=== PATIENT | male | born 1975 | race Caucasian/White ===

== ENCOUNTER 2017-09-19 02:42 | Emergency (ER) | payer SELFPAY ==
[~2017-09-19] VITALS: Ht 167.6 cm; Wt 68.0 kg
[2017-09-19] MEDS ORDERED: SODIUM CHLORIDE 0.9% 1,000 ML IV ONE (06:45)
[2017-09-19] MEDS ORDERED: ONDANSETRON HCL 4MG/2ML VIAL IV ONE (06:45)
[2017-09-19 07:08] LABS: CLARITY URINE CLOUDY (CLEAR); COLOR URINE YELLOW (YELLOW); KETONES URINE NEGATIVE (NEGATIVE); LEUKOCYTE ESTERASE URINE 3+ (NEGATIVE); NITRITE URINE NEGATIVE (NEGATIVE); OCCULT BLOOD URINE 3+ (NEGATIVE); PROTEIN URINE 2+ (NEGATIVE); SPECIFIC GRAVITY URINE 1.006 (1.005-1.030); UROBILINOGEN URINE 0.2 E.U./dL (0.2-1.0)
[2017-09-19 07:26] LABS: BASOPHILS % 0.6 % (0.0-2.0); EOSINOPHILS % 0.1 % (0.0-5.0); HEMATOCRIT. 36.8 % (42.0-52.0); HEMOGLOBIN. 12.7 g/dL (14.0-18.0); LYMPHOCYTES % 15.2 % (20.0-50.0); MEAN CORPUSCULAR HEMOGLOBIN 31.9 pg (28.0-32.0); MEAN CORPUSCULAR VOLUME 92.3 fL (80.0-94.0); MEAN PLATELET VOLUME 9.9 fl (7.4-10.4); MONOCYTES % 9.6 % (2.0-8.0); NEUTROPHILS % 74.5 % (40.0-76.0); PLATELET 121 x1000/uL (130-400); RED BLOOD CELL COUNT 3.99 mill/uL (4.7-6.1); RED CELL DISTRIBUTION WIDTH 13.3 % (11.6-14.6)
[2017-09-19 07:34] LABS: CHLORIDE 104 mEq/L (98-107); PROTHROMBIN TIME 10.1 sec (9.4-11.6)
[2017-09-19] MEDS ORDERED: POTASSIUM CHLORIDE 20MEQ/PACKET PO SCH (07:45)
[2017-09-19] MEDS ORDERED: CEFTRIAXONE 1 G PREMIX 50 ML IV ONE (07:45)
[2017-09-19] MEDS ORDERED: KETOROLAC 15MG/ML VIAL IV ONE (07:45)
[2017-09-19 12:11] VITALS: BP 124/74
== END 2017-09-19 12:12 | disposition home or self-care (01) ==
LOC: ER 02:42
DX: N39.0 Urinary tract infection, site not specified (principal); R10.13 Epigastric pain; R31.9 Hematuria, unspecified; D64.9 Anemia, unspecified; D47.3 Essential (hemorrhagic) thrombocythemia; N28.9 Disorder of kidney and ureter, unspecified; F17.200 Nicotine dependence, unspecified, uncomplicated; Z86.19 Personal history of other infectious and parasitic diseases; Z86.73 Personal history of transient ischemic attack (TIA), and cerebral infarction without residual deficits
CPT/HCPCS: 36415; 76870; 80053; 81003; 83690; 85025; 85610; 87086; 93976; 96365; 96375; 99285; J0696; J1885; J2405; J7030; Z7610

== ENCOUNTER 2021-02-17 23:02 | Inpatient (IN) | payer MEDICAID, OTHER ==
[~2021-02-17] VITALS: Ht 165.1 cm; Wt 60.5 kg
[2021-02-17] MEDS ORDERED: LORAZEPAM 2MG/ML CPJ IV ONE (23:15)
[2021-02-18 01:02] LABS: HEMATOCRIT. 29.5 % (42.0-52.0); HEMOGLOBIN. 10.2 g/dL (14.0-18.0); MEAN CORPUSCULAR HEMOGLOBIN 31.8 pg (28.0-32.0); MEAN CORPUSCULAR VOLUME 92.3 fL (80.0-94.0); MEAN PLATELET VOLUME 10.6 fl (7.4-10.4); RED CELL DISTRIBUTION WIDTH 13.4 % (11.6-14.6)
[2021-02-18 01:12] LABS: CHLORIDE 95 mEq/L (98-107)
[2021-02-18 01:27] LABS: PLATELET 30 x1000/uL (130-400)
[2021-02-18 02:06] LABS: PLATELET ESTIMATE DECREASED
[2021-02-18] MEDS ORDERED: CEFTRIAXONE 1 G PREMIX 50 ML IV ONE (02:45)
[2021-02-18] MEDS ORDERED: VANCOMYCIN 1 G PREMIX 200 ML IV ONE (02:45)
[2021-02-18] MEDS ORDERED: HYDROCODONE/ACETAMINOPHEN 5/325MG TABLET PO ONE (03:45)
[2021-02-18] MEDS ORDERED: MORPHINE SULFATE 2 MG/ML CPJ (NOT FOR IM USE) IV PRN (07:15)
[2021-02-18] MEDS ORDERED: CEFEPIME 1,000 MG in DEXTROSE 5% WATER 50 ML IV SCH (11:30)
[2021-02-18] MEDS ORDERED: POTASSIUM CHLORIDE 20MEQ TABLET SR PO SCH (11:30)
[2021-02-18] MEDS ORDERED: ONDANSETRON HCL 4MG/2ML INJ IV PRN (11:30)
[2021-02-18] MEDS ORDERED: VANCOMYCIN 750 MG PREMIX 150 ML IV SCH (12:00)
[2021-02-18] MEDS: CEFEPIME 1,000 MG in DEXTROSE 5% WATER 50 ML IV SCH (12:12)
[2021-02-18] MEDS: ACETAMINOPHEN 325MG TABLET PO PRN (14:39)
[2021-02-18] MEDS ORDERED: POTASSIUM CHLORIDE 20MEQ TABLET SR PO NR (17:15)
[2021-02-18 18:57] VITALS: BP 128/82
[2021-02-18 20:00] VITALS: BP 108/69
[2021-02-18] MEDS ORDERED: NALOXONE HCL 0.4MG/ML VIAL IV PRN (20:00)
[2021-02-18] MEDS ORDERED: LORAZEPAM 2MG/ML CPJ IV NR (20:00)
[2021-02-18] MEDS: HYDROCODONE/ACETAMINOPHEN 10/325MG TABLET PO PRN (20:05)
[2021-02-18] MEDS: METOPROLOL TARTRATE 50MG TABLET PO SCH (21:00)
[2021-02-19] VITALS: BP 89/58
[2021-02-19 04:00] VITALS: BP 90/54
[2021-02-19 06:38] LABS: HEMATOCRIT. 28.4 % (42.0-52.0); HEMOGLOBIN. 9.7 g/dL (14.0-18.0); MEAN CORPUSCULAR HEMOGLOBIN 31.9 pg (28.0-32.0); MEAN PLATELET VOLUME 12.8 fl (7.4-10.4); RED BLOOD CELL COUNT 3.03 mill/uL (4.7-6.1); RED CELL DISTRIBUTION WIDTH 13.8 % (11.6-14.6)
[2021-02-19 08:00] VITALS: BP 95/59
[2021-02-19] MEDS: SODIUM CHLORIDE 0.9% 1,000 ML IV SCH ×2 (08:11→11:30)
[2021-02-19] MEDS: METOPROLOL TARTRATE 50MG TABLET PO SCH ×2 (09:00→21:00)
[2021-02-19 10:15] LABS: INR 0.9; PARTIAL THROMBOPLASTIN TIME 27.8 sec (23.4-31.0); PROTHROMBIN TIME 9.8 sec (9.6-11.0)
[2021-02-19 12:00] VITALS: BP 104/49
[2021-02-19 14:02] LABS: NUCLEATED RED BLOOD CELLS 1 /100 WBC; PLATELET ESTIMATE MARKEDLY DECREASED
[2021-02-19 14:03] LABS: PLATELET 29 x1000/uL (130-400)
[2021-02-19] MEDS ORDERED: TRAMADOL 50MG TABLET PO PRN (15:00)
[2021-02-19] MEDS: CEFEPIME 1,000 MG in DEXTROSE 5% WATER 50 ML IV SCH (15:00)
[2021-02-19] MEDS: HYDROCODONE/ACETAMINOPHEN 10/325MG TABLET PO PRN (15:01)
[2021-02-19 16:00] VITALS: BP 94/57
[2021-02-19 20:00] VITALS: BP 104/56
[2021-02-19] MEDS ORDERED: EPOETIN ALFA-EPBX 10,000 UNIT/ML VIAL SUBCUT NR (21:00)
[2021-02-19] MEDS: ACETAMINOPHEN 325MG TABLET PO PRN (21:17)
[2021-02-20] VITALS: BP 89/45
[2021-02-20 04:00] VITALS: BP 92/50
[2021-02-20] MEDS: SODIUM CHLORIDE 0.9% 1,000 ML IV SCH (04:00)
[2021-02-20 06:41] LABS: CHLORIDE 101 mEq/L (98-107)
[2021-02-20 07:27] LABS: BASOPHILS % 0.4 % (0.0-2.0); EOSINOPHILS % 0.3 % (0.0-5.0); HEMATOCRIT. 28.7 % (42.0-52.0); HEMOGLOBIN. 9.6 g/dL (14.0-18.0); LYMPHOCYTES % 13.2 % (20.0-50.0); MEAN CORPUSCULAR HEMOGLOBIN 31.1 pg (28.0-32.0); MEAN CORPUSCULAR VOLUME 93.1 fL (80.0-94.0); MEAN PLATELET VOLUME 11.3 fl (7.4-10.4); MONOCYTES % 12.4 % (2.0-8.0); NEUTROPHILS % 73.7 % (40.0-76.0); RED BLOOD CELL COUNT 3.08 mill/uL (4.7-6.1); RED CELL DISTRIBUTION WIDTH 14.1 % (11.6-14.6)
[2021-02-20 08:00] VITALS: BP 92/54
[2021-02-20] MEDS: METOPROLOL TARTRATE 50MG TABLET PO SCH ×2 (08:54→21:00)
[2021-02-20 09:10] LABS: PLATELET 46 x1000/uL (130-400)
[2021-02-20] MEDS ORDERED: POTASSIUM CHLORIDE 20MEQ TABLET SR PO SCH (09:15)
[2021-02-20 10:03] LABS: BG BASE EXCESS -11.2 mmol/L (-2.0-2.0); BG CARBOXYHEMOGLOBIN 0.3 % (0.5-1.5); BG DEOXYHEMOGLOBIN 2.3 % (0.0-5.0); BG FRACTION INSPIRED OXYGEN 32; BG HCO3 ACT 13.6 mmol/L (22.0-26.0); BG METHEMOGLOBIN 0.1 % (0.0-1.5); BG OXYGEN SATURATION 97.7 % (92.0-98.5); BG OXYHEMOGLOBIN 97.3 % (94.0-97.0); BG PCO2 27.4 mmHg (35.0-45.0); BG PH 7.313 (7.350-7.450); BG PO2 109.2 mmHg (75.0-100.0); BG SAMPLE SITE LEFT FEMORAL; BG TOTAL HEMOGLOBIN 10.6 g/dL (12.0-18.0); BG VENT MODE NASAL CANNULA
[2021-02-20 10:10] LABS: ABSOLUTE LYMPHOCYTES 0.9 x10E3/uL (0.7-3.1); ABSOLUTE MONOCYTES 1.1 x10E3/uL (0.1-0.9); ABSOLUTE NEUTROPHILS 9.3 x10E3/uL (1.4-7.0); BASOPHILS 0 % (Not Estab.); HEMATOCRIT 30.3 % (37.5-51.0); HEMATOLOGY COMMENT Note: (.); HEMOGLOBIN 10.6 g/dL (13.0-17.7); IMMATURE GRANULOCYTES 2 % (Not Estab.); IMMATURE GRANULOCYTES ABSOLUTE 0.2 x10E3/uL (0.0-0.1); LYMPHOCYTES 7 % (Not Estab.); MEAN CORPUSCULAR HEMOGLOBIN 31.5 pg (26.6-33.0); MEAN CORPUSCULAR VOLUME 90 fL (79-97); MONOCYTES 10 % (Not Estab.); NEUTROPHILS 81 % (Not Estab.); PLATELETS 37 x10E3/uL (150-450); RBC 3.37 x10E6/uL (4.14-5.80); RED CELL DISTRIBUTION WIDTH 12.8 % (11.6-15.4); WBC 11.5 x10E3/uL (3.4-10.8)
[2021-02-20] MEDS ORDERED: LIDOCAINE HCL 1% 20ML VIAL (Pyxis) INJ ONE (10:29)
[2021-02-20] MEDS: HYDROCODONE/ACETAMINOPHEN 10/325MG TABLET PO PRN (11:02)
[2021-02-20] MEDS: CITRIC ACID/SODIUM CITRATE SOLN 30ML UDC PO SCH ×3 (11:04→17:33)
[2021-02-20] MEDS: MIDODRINE HCL 5MG TABLET PO SCH ×3 (11:08→17:33)
[2021-02-20] MEDS: ACETAMINOPHEN 325MG TABLET PO PRN (11:32)
[2021-02-20 12:00] VITALS: BP 93/53
[2021-02-20 16:00] VITALS: BP 90/47
[2021-02-20 20:00] VITALS: BP 95/53
[2021-02-21] VITALS: BP 94/59
[2021-02-21 04:00] VITALS: BP 103/49
[2021-02-21 04:12] LABS: % CD 3 POS. LYMPHOCYTES 64.6 % (57.5-86.2); % CD 4 POS. LYMPHOCYTES 13.4 % (30.8-58.5); % CD 8 POS. LYMPH 51.2 % (12.0-35.5); ABSOLUTE CD 3 581 /uL (622-2402); ABSOLUTE CD 4 HELPER 121 /uL (359-1519); ABSOLUTE CD 8 SUPPRESSOR 461 /uL (109-897); CD4/CD8 RATIO 0.26 (0.92-3.72)
[2021-02-21] MEDS: ACETAMINOPHEN 325MG TABLET PO PRN (05:01)
[2021-02-21 07:30] LABS: HEMATOCRIT. 26.8 % (42.0-52.0); HEMOGLOBIN. 9.2 g/dL (14.0-18.0); MEAN CORPUSCULAR HEMOGLOBIN 31.6 pg (28.0-32.0); MEAN PLATELET VOLUME 10.7 fl (7.4-10.4); PLATELET 79 x1000/uL (130-400); RED BLOOD CELL COUNT 2.91 mill/uL (4.7-6.1); RED CELL DISTRIBUTION WIDTH 14.1 % (11.6-14.6)
[2021-02-21 08:00] VITALS: BP 90/47
[2021-02-21 08:12] LABS: PHOSPHORUS 2.6 mg/dL (2.5-4.9)
[2021-02-21] MEDS: METOPROLOL TARTRATE 50MG TABLET PO SCH ×2 (09:00→20:42)
[2021-02-21] MEDS: MIDODRINE HCL 5MG TABLET PO SCH ×3 (10:21→18:26)
[2021-02-21] MEDS: CITRIC ACID/SODIUM CITRATE SOLN 30ML UDC PO SCH ×3 (10:21→18:26)
[2021-02-21] MEDS ORDERED: POTASSIUM CHLORIDE 20MEQ TABLET SR PO NR (10:30)
[2021-02-21 11:28] LABS: PLATELET ESTIMATE DECREASED
[2021-02-21 12:00] VITALS: BP 101/56
[2021-02-21] MEDS: CEFAZOLIN 1000MG PREMIX 50 ML IV SCH (12:48)
[2021-02-21] MEDS: SULFAMETHOXAZOLE/TRIMETHOPRIM 400/80MG TAB PO SCH (12:48)
[2021-02-21 16:00] VITALS: BP 103/62
[2021-02-21 20:00] VITALS: BP 102/59
[2021-02-21] MEDS: SODIUM CHLORIDE 0.9% 1,000 ML IV SCH ×2 (20:44)
[2021-02-22] VITALS: BP 98/53
[2021-02-22 05:25] VITALS: BP 99/58
[2021-02-22 06:46] LABS: BASOPHILS % 0.3 % (0.0-2.0); EOSINOPHILS % 0.1 % (0.0-5.0); HEMATOCRIT. 26.8 % (42.0-52.0); HEMOGLOBIN. 9.1 g/dL (14.0-18.0); LYMPHOCYTES % 9.3 % (20.0-50.0); MEAN CORPUSCULAR HEMOGLOBIN 31.5 pg (28.0-32.0); MEAN CORPUSCULAR VOLUME 92.5 fL (80.0-94.0); MEAN PLATELET VOLUME 9.8 fl (7.4-10.4); MONOCYTES % 8.7 % (2.0-8.0); NEUTROPHILS % 81.6 % (40.0-76.0); PLATELET 136 x1000/uL (130-400); RED CELL DISTRIBUTION WIDTH 13.9 % (11.6-14.6)
[2021-02-22 07:20] LABS: PHOSPHORUS 2.1 mg/dL (2.5-4.9)
[2021-02-22 08:00] VITALS: BP_SYST 105; BP_SYST 126; BP_DIAS 72; BP_DIAS 74
[2021-02-22] MEDS: METOPROLOL TARTRATE 50MG TABLET PO SCH ×2 (09:00→21:00)
[2021-02-22] MEDS: SULFAMETHOXAZOLE/TRIMETHOPRIM 400/80MG TAB PO SCH (10:32)
[2021-02-22] MEDS: MIDODRINE HCL 5MG TABLET PO SCH ×3 (10:34→16:58)
[2021-02-22] MEDS: CITRIC ACID/SODIUM CITRATE SOLN 30ML UDC PO SCH ×4 (10:34→17:00)
[2021-02-22] MEDS: HYDROCODONE/ACETAMINOPHEN 10/325MG TABLET PO PRN ×2 (10:40→21:46)
[2021-02-22] MEDS ORDERED: POTASSIUM PHOS,M-BASIC-D-BASIC 15 MMOL in DEXT 5% WATER 245 ML IV NR (11:00)
[2021-02-22 12:00] VITALS: BP 105/72
[2021-02-22] MEDS: CEFAZOLIN 1000MG PREMIX 50 ML IV SCH (13:30)
[2021-02-22] MEDS: SODIUM CHLORIDE 0.9% 1,000 ML IV SCH (16:00)
[2021-02-22 17:00] VITALS: BP 102/71
[2021-02-22] MEDS: ACETAMINOPHEN 325MG TABLET PO PRN (17:14)
[2021-02-22 20:00] VITALS: BP 101/57
[2021-02-22] MEDS ORDERED: EPOETIN ALFA-EPBX 10,000 UNIT/ML VIAL SUBCUT SCH (21:00)
[2021-02-23] VITALS: BP 105/56
[2021-02-23 03:47] VITALS: BP 109/55
[2021-02-23] MEDS: HYDROCODONE/ACETAMINOPHEN 10/325MG TABLET PO PRN ×2 (05:08→09:31)
[2021-02-23 06:42] LABS: BASOPHILS % 0.9 % (0.0-2.0); EOSINOPHILS % 0.5 % (0.0-5.0); HEMATOCRIT. 28.1 % (42.0-52.0); HEMOGLOBIN. 9.4 g/dL (14.0-18.0); LYMPHOCYTES % 10.9 % (20.0-50.0); MEAN CORPUSCULAR HEMOGLOBIN 31.1 pg (28.0-32.0); MEAN CORPUSCULAR VOLUME 93.2 fL (80.0-94.0); MEAN PLATELET VOLUME 9.9 fl (7.4-10.4); NEUTROPHILS % 77.7 % (40.0-76.0); PLATELET 166 x1000/uL (130-400); RED BLOOD CELL COUNT 3.02 mill/uL (4.7-6.1); RED CELL DISTRIBUTION WIDTH 13.8 % (11.6-14.6)
[2021-02-23 07:22] VITALS: BP 96/50
[2021-02-23] MEDS: METOPROLOL TARTRATE 50MG TABLET PO SCH ×2 (09:00→20:31)
[2021-02-23] MEDS: SULFAMETHOXAZOLE/TRIMETHOPRIM 400/80MG TAB PO SCH (09:31)
[2021-02-23] MEDS: CITRIC ACID/SODIUM CITRATE SOLN 30ML UDC PO SCH ×3 (09:31→17:28)
[2021-02-23] MEDS: MIDODRINE HCL 5MG TABLET PO SCH ×3 (09:33→17:28)
[2021-02-23 12:00] VITALS: BP 97/48
[2021-02-23] MEDS ORDERED: POTASSIUM CHLORIDE 20MEQ TABLET SR PO NR ×2 (13:00→13:45)
[2021-02-23] MEDS: SODIUM CHLORIDE 0.9% 1,000 ML IV SCH (13:29)
[2021-02-23] MEDS: CEFAZOLIN 1000MG PREMIX 50 ML IV SCH (13:29)
[2021-02-23 15:55] VITALS: BP 96/52
[2021-02-23 21:00] VITALS: BP 100/58
[2021-02-24] VITALS: BP 101/61
[2021-02-24 04:00] VITALS: BP 109/62
[2021-02-24 05:58] LABS: PHOSPHORUS 3.4 mg/dL (2.5-4.9)
[2021-02-24 06:37] LABS: BASOPHILS % 0.7 % (0.0-2.0); EOSINOPHILS % 0.1 % (0.0-5.0); HEMATOCRIT. 26.6 % (42.0-52.0); LYMPHOCYTES % 12.1 % (20.0-50.0); MEAN CORPUSCULAR HEMOGLOBIN 31.5 pg (28.0-32.0); MEAN CORPUSCULAR VOLUME 93.5 fL (80.0-94.0); MEAN PLATELET VOLUME 10.2 fl (7.4-10.4); MONOCYTES % 9.2 % (2.0-8.0); NEUTROPHILS % 77.9 % (40.0-76.0); PLATELET 179 x1000/uL (130-400); RED BLOOD CELL COUNT 2.85 mill/uL (4.7-6.1); RED CELL DISTRIBUTION WIDTH 13.5 % (11.6-14.6)
[2021-02-24 08:00] VITALS: BP 108/59
[2021-02-24] MEDS: METOPROLOL TARTRATE 50MG TABLET PO SCH ×2 (09:00→20:34)
[2021-02-24] MEDS: ACETAMINOPHEN 325MG TABLET PO PRN (09:07)
[2021-02-24] MEDS: CITRIC ACID/SODIUM CITRATE SOLN 30ML UDC PO SCH ×2 (09:07→16:36)
[2021-02-24] MEDS: SULFAMETHOXAZOLE/TRIMETHOPRIM 400/80MG TAB PO SCH (09:07)
[2021-02-24] MEDS: MIDODRINE HCL 5MG TABLET PO SCH ×3 (09:08→16:37)
[2021-02-24] MEDS: SODIUM CHLORIDE 0.9% 1,000 ML IV SCH (09:08)
[2021-02-24 11:57] VITALS: BP 91/56
[2021-02-24] MEDS: CEFAZOLIN 1000MG PREMIX 50 ML IV SCH (13:29)
[2021-02-24 15:59] VITALS: BP 97/50
[2021-02-24 20:00] VITALS: BP 93/53
[2021-02-24] MEDS ORDERED: VANCOMYCIN 750 MG PREMIX 150 ML IV NR (21:00)
[2021-02-25] VITALS: BP 97/58
[2021-02-25] MEDS: ACETAMINOPHEN 325MG TABLET PO PRN ×2 (03:05→17:30)
[2021-02-25] MEDS: SODIUM CHLORIDE 0.9% 1,000 ML IV SCH (03:13)
[2021-02-25 03:48] VITALS: BP 112/53
[2021-02-25 08:00] VITALS: BP 101/49
[2021-02-25] MEDS: SULFAMETHOXAZOLE/TRIMETHOPRIM 400/80MG TAB PO SCH (08:16)
[2021-02-25] MEDS: CITRIC ACID/SODIUM CITRATE SOLN 30ML UDC PO SCH ×2 (08:16→17:25)
[2021-02-25] MEDS: METOPROLOL TARTRATE 50MG TABLET PO SCH ×2 (08:19→21:00)
[2021-02-25] MEDS: MIDODRINE HCL 5MG TABLET PO SCH ×3 (08:20→17:25)
[2021-02-25] MEDS ORDERED: LORAZEPAM 2MG/ML CPJ IV NR (11:15)
[2021-02-25 12:00] VITALS: BP 96/51
[2021-02-25] MEDS: CEFAZOLIN 1000MG PREMIX 50 ML IV SCH (12:28)
[2021-02-25 16:15] VITALS: BP 94/49
[2021-02-25] MEDS: GUAIFENESIN-DM 200MG-20MG/10ML UDC PO PRN (17:43)
[2021-02-25 20:00] VITALS: BP 91/50
[2021-02-25] MEDS: COLCHICINE 0.6MG TABLET PO SCH (22:23)
[2021-02-26 00:01] VITALS: BP 100/61
[2021-02-26] MEDS: SODIUM CHLORIDE 0.9% 1,000 ML IV SCH ×2 (00:28→20:00)
[2021-02-26 03:59] VITALS: BP 101/52
[2021-02-26 06:07] LABS: BASOPHILS % 0.4 % (0.0-2.0); HEMATOCRIT. 26.6 % (42.0-52.0); LYMPHOCYTES % 13.4 % (20.0-50.0); MEAN CORPUSCULAR HEMOGLOBIN 31.5 pg (28.0-32.0); MEAN CORPUSCULAR VOLUME 93.7 fL (80.0-94.0); MEAN PLATELET VOLUME 9.2 fl (7.4-10.4); MONOCYTES % 8.1 % (2.0-8.0); NEUTROPHILS % 78.1 % (40.0-76.0); PLATELET 180 x1000/uL (130-400); RED BLOOD CELL COUNT 2.84 mill/uL (4.7-6.1); RED CELL DISTRIBUTION WIDTH 13.8 % (11.6-14.6)
[2021-02-26 06:16] LABS: CHLORIDE 105 mEq/L (98-107)
[2021-02-26 06:25] LABS: PHOSPHORUS 3.1 mg/dL (2.5-4.9)
[2021-02-26 08:00] VITALS: BP 100/56
[2021-02-26] MEDS: SULFAMETHOXAZOLE/TRIMETHOPRIM 400/80MG TAB PO SCH (09:24)
[2021-02-26] MEDS: METOPROLOL TARTRATE 50MG TABLET PO SCH ×2 (09:25→21:00)
[2021-02-26] MEDS: MIDODRINE HCL 5MG TABLET PO SCH ×3 (09:25→18:03)
[2021-02-26] MEDS: COLCHICINE 0.6MG TABLET PO SCH (09:26)
[2021-02-26 12:00] VITALS: BP 94/56
[2021-02-26] MEDS: CITRIC ACID/SODIUM CITRATE SOLN 30ML UDC PO SCH ×2 (13:31→18:04)
[2021-02-26] MEDS: CEFAZOLIN 1000MG PREMIX 50 ML IV SCH (15:25)
[2021-02-26 16:00] VITALS: BP 98/52
[2021-02-26 20:00] VITALS: BP 119/69
[2021-02-26] MEDS ORDERED: DAPTOMYCIN 350 MG in SODIUM CHLORIDE 0.9% 50 ML IV SCH (20:00)
[2021-02-27] VITALS: BP 97/54
[2021-02-27 04:00] VITALS: BP 97/52
[2021-02-27 07:21] LABS: PARTIAL THROMBOPLASTIN TIME 24.1 sec (23.4-31.0); PROTHROMBIN TIME 10.4 sec (9.6-11.0)
[2021-02-27 07:24] LABS: BASOPHILS % 1.5 % (0.0-2.0); HEMATOCRIT. 26.8 % (42.0-52.0); HEMOGLOBIN. 9.1 g/dL (14.0-18.0); LYMPHOCYTES % 17.8 % (20.0-50.0); MEAN CORPUSCULAR HEMOGLOBIN 31.8 pg (28.0-32.0); MEAN CORPUSCULAR VOLUME 93.8 fL (80.0-94.0); MONOCYTES % 7.4 % (2.0-8.0); NEUTROPHILS % 73.3 % (40.0-76.0); RED BLOOD CELL COUNT 2.86 mill/uL (4.7-6.1); RED CELL DISTRIBUTION WIDTH 13.9 % (11.6-14.6)
[2021-02-27 07:34] LABS: PHOSPHORUS 3.6 mg/dL (2.5-4.9)
[2021-02-27 08:00] VITALS: BP 93/54
[2021-02-27] MEDS: METOPROLOL TARTRATE 50MG TABLET PO SCH ×2 (09:00→20:44)
[2021-02-27] MEDS: CITRIC ACID/SODIUM CITRATE SOLN 30ML UDC PO SCH ×2 (09:36→17:33)
[2021-02-27] MEDS: MIDODRINE HCL 5MG TABLET PO SCH ×3 (09:36→17:33)
[2021-02-27] MEDS: ATOVAQUONE 750MG/5ML ORAL SYRINGE PO SCH (09:36)
[2021-02-27 09:54] LABS: PLATELET 186 x1000/uL (130-400)
[2021-02-27] MEDS: ACETAMINOPHEN 325MG TABLET PO PRN (11:23)
[2021-02-27 12:00] VITALS: BP 91/56
[2021-02-27] MEDS ORDERED: SODIUM BICARBONATE 4% (2.4MEQ) 5ML VIAL IV ONE (13:44)
[2021-02-27] MEDS ORDERED: LIDOCAINE HCL 1% 10 MG/ML 10ML VIAL ONE (13:44)
[2021-02-27 16:00] VITALS: BP 105/57
[2021-02-27] MEDS: SODIUM CHLORIDE 0.9% 1,000 ML IV SCH (16:00)
[2021-02-27 18:34] LABS: CREATINE KINASE 280 IU/L (39-308)
[2021-02-27 20:00] VITALS: BP 101/60
[2021-02-28] VITALS: BP 99/63
[2021-02-28 04:00] VITALS: BP 119/68
[2021-02-28 06:51] LABS: BASOPHILS % 1.1 % (0.0-2.0); EOSINOPHILS % 0.1 % (0.0-5.0); HEMATOCRIT. 25.1 % (42.0-52.0); HEMOGLOBIN. 8.5 g/dL (14.0-18.0); LYMPHOCYTES % 21.5 % (20.0-50.0); MEAN CORPUSCULAR HEMOGLOBIN 31.6 pg (28.0-32.0); MEAN PLATELET VOLUME 9.3 fl (7.4-10.4); NEUTROPHILS % 69.3 % (40.0-76.0); PLATELET 178 x1000/uL (130-400); RED CELL DISTRIBUTION WIDTH 13.5 % (11.6-14.6)
[2021-02-28 07:09] LABS: PHOSPHORUS 3.4 mg/dL (2.5-4.9)
[2021-02-28 08:00] VITALS: BP 112/63
[2021-02-28] MEDS: ATOVAQUONE 750MG/5ML ORAL SYRINGE PO SCH (09:24)
[2021-02-28] MEDS: CITRIC ACID/SODIUM CITRATE SOLN 30ML UDC PO SCH (09:24)
[2021-02-28] MEDS: MIDODRINE HCL 5MG TABLET PO SCH ×3 (09:25→16:34)
[2021-02-28] MEDS: METOPROLOL TARTRATE 50MG TABLET PO SCH ×2 (09:25→20:58)
[2021-02-28 12:00] VITALS: BP 127/101
[2021-02-28] MEDS ORDERED: VANCOMYCIN 1 G PREMIX 200 ML IV SCH (12:00)
[2021-02-28] MEDS: GUAIFENESIN-DM 200MG-20MG/10ML UDC PO PRN (12:14)
[2021-02-28] MEDS: SODIUM CHLORIDE 0.9% 1,000 ML IV SCH (12:15)
[2021-02-28] MEDS ORDERED: VANCOMYCIN 750 MG PREMIX 150 ML IV NR (15:00)
[2021-02-28 16:00] VITALS: BP 99/53
[2021-02-28 20:00] VITALS: BP 127/74
[2021-03-01 01:43] VITALS: BP 103/54
[2021-03-01 04:00] VITALS: BP 111/59
[2021-03-01 06:48] LABS: HEMATOCRIT. 26.7 % (42.0-52.0); HEMOGLOBIN. 8.9 g/dL (14.0-18.0); LYMPHOCYTES % 26.9 % (20.0-50.0); MEAN CORPUSCULAR HEMOGLOBIN 31.5 pg (28.0-32.0); MEAN CORPUSCULAR VOLUME 93.9 fL (80.0-94.0); MONOCYTES % 9.9 % (2.0-8.0); NEUTROPHILS % 62.2 % (40.0-76.0); PLATELET 182 x1000/uL (130-400); RED BLOOD CELL COUNT 2.84 mill/uL (4.7-6.1); RED CELL DISTRIBUTION WIDTH 13.3 % (11.6-14.6)
[2021-03-01 07:00] LABS: PHOSPHORUS 3.6 mg/dL (2.5-4.9)
[2021-03-01 08:00] VITALS: BP 100/57
[2021-03-01] MEDS: METOPROLOL TARTRATE 50MG TABLET PO SCH ×2 (09:00→21:00)
[2021-03-01] MEDS: MIDODRINE HCL 5MG TABLET PO SCH ×3 (09:03→17:31)
[2021-03-01] MEDS: ATOVAQUONE 750MG/5ML ORAL SYRINGE PO SCH (09:05)
[2021-03-01] MEDS: SODIUM CHLORIDE 0.9% 1,000 ML IV SCH (09:07)
[2021-03-01 12:00] VITALS: BP 111/63
[2021-03-01] MEDS ORDERED: NALOXONE HCL 0.4MG/ML VIAL IV PRN (15:45)
[2021-03-01 16:00] VITALS: BP 97/60
[2021-03-01] MEDS: TRAMADOL 50MG TABLET PO PRN (17:31)
[2021-03-01 20:00] VITALS: BP 104/71
[2021-03-02] VITALS: BP 97/54
[2021-03-02 04:00] VITALS: BP 146/62
[2021-03-02] MEDS: SODIUM CHLORIDE 0.9% 1,000 ML IV SCH (04:00)
[2021-03-02 08:00] VITALS: BP 106/58
[2021-03-02] MEDS: ATOVAQUONE 750MG/5ML ORAL SYRINGE PO SCH (08:51)
[2021-03-02] MEDS: MIDODRINE HCL 5MG TABLET PO SCH ×3 (08:51→17:51)
[2021-03-02] MEDS: METOPROLOL TARTRATE 50MG TABLET PO SCH ×2 (08:52→20:57)
[2021-03-02 12:00] VITALS: BP 126/58
[2021-03-02 16:00] VITALS: BP 96/55
[2021-03-02] MEDS: TRAMADOL 50MG TABLET PO PRN (17:58)
[2021-03-02 20:00] VITALS: BP 105/56
[2021-03-02] MEDS ORDERED: VANCOMYCIN 500 MG PREMIX 100 ML IV SCH (20:00)
[2021-03-03] VITALS: BP 111/73
[2021-03-03 04:00] VITALS: BP 117/66
[2021-03-03 08:00] VITALS: BP 114/59
[2021-03-03] MEDS: METOPROLOL TARTRATE 50MG TABLET PO SCH ×2 (08:51→20:59)
[2021-03-03] MEDS: ATOVAQUONE 750MG/5ML ORAL SYRINGE PO SCH (08:53)
[2021-03-03] MEDS: MIDODRINE HCL 5MG TABLET PO SCH (08:54)
[2021-03-03] MEDS: TRAMADOL 50MG TABLET PO PRN (08:55)
[2021-03-03 12:00] VITALS: BP 114/56
[2021-03-03] MEDS: MIDODRINE HCL 2.5MG TABLET PO SCH ×2 (14:16→17:00)
[2021-03-03 16:00] VITALS: BP 112/74
[2021-03-03 20:00] VITALS: BP 99/63
[2021-03-03] MEDS: SODIUM CHLORIDE 0.9% 1,000 ML IV SCH ×2 (20:00)
[2021-03-04] VITALS: BP 98/60
[2021-03-04 04:00] VITALS: BP 104/62
[2021-03-04 08:00] VITALS: BP 107/63
[2021-03-04] MEDS: METOPROLOL TARTRATE 50MG TABLET PO SCH ×3 (09:00→21:00)
[2021-03-04] MEDS: ATOVAQUONE 750MG/5ML ORAL SYRINGE PO SCH (10:18)
[2021-03-04] MEDS: MIDODRINE HCL 2.5MG TABLET PO SCH ×3 (10:19→17:30)
[2021-03-04 12:00] VITALS: BP 99/64
[2021-03-04] MEDS: SODIUM CHLORIDE 0.9% 1,000 ML IV SCH (15:10)
[2021-03-04 16:00] VITALS: BP 112/59
[2021-03-04 20:00] VITALS: BP 93/57
[2021-03-04] MEDS ORDERED: VANCOMYCIN 500 MG PREMIX 100 ML IV NR (21:00)
[2021-03-05] VITALS: BP 108/68
[2021-03-05 04:00] VITALS: BP 113/66
[2021-03-05 07:34] LABS: HEMATOCRIT. 26.5 % (42.0-52.0); HEMOGLOBIN. 8.6 g/dL (14.0-18.0); MEAN CORPUSCULAR HEMOGLOBIN 30.3 pg (28.0-32.0); MEAN CORPUSCULAR VOLUME 93.9 fL (80.0-94.0); MEAN PLATELET VOLUME 9.4 fl (7.4-10.4); MONOCYTES % 9.5 % (2.0-8.0); NEUTROPHILS % 56.5 % (40.0-76.0); PLATELET 222 x1000/uL (130-400); RED BLOOD CELL COUNT 2.82 mill/uL (4.7-6.1); RED CELL DISTRIBUTION WIDTH 12.9 % (11.6-14.6)
[2021-03-05 08:00] VITALS: BP 121/71
[2021-03-05] MEDS: ATOVAQUONE 750MG/5ML ORAL SYRINGE PO SCH (09:21)
[2021-03-05] MEDS: MIDODRINE HCL 2.5MG TABLET PO SCH ×3 (09:22→17:10)
[2021-03-05] MEDS: METOPROLOL TARTRATE 50MG TABLET PO SCH ×2 (09:23→21:26)
[2021-03-05 12:00] VITALS: BP 102/61
[2021-03-05 16:00] VITALS: BP 108/77
[2021-03-05 20:00] VITALS: BP 111/65
[2021-03-06] VITALS: BP 96/61
[2021-03-06 04:00] VITALS: BP 89/47
[2021-03-06 07:50] LABS: BASOPHILS % 1.2 % (0.0-2.0); HEMATOCRIT. 25.8 % (42.0-52.0); HEMOGLOBIN. 8.7 g/dL (14.0-18.0); LYMPHOCYTES % 41.4 % (20.0-50.0); MEAN CORPUSCULAR HEMOGLOBIN 31.2 pg (28.0-32.0); MEAN PLATELET VOLUME 9.3 fl (7.4-10.4); MONOCYTES % 12.1 % (2.0-8.0); NEUTROPHILS % 45.3 % (40.0-76.0); PLATELET 231 x1000/uL (130-400); RED CELL DISTRIBUTION WIDTH 12.8 % (11.6-14.6)
[2021-03-06 08:00] VITALS: BP 98/57
[2021-03-06 08:01] LABS: PHOSPHORUS 4.2 mg/dL (2.5-4.9)
[2021-03-06] MEDS: METOPROLOL TARTRATE 50MG TABLET PO SCH ×2 (09:00→20:41)
[2021-03-06] MEDS: MIDODRINE HCL 2.5MG TABLET PO SCH ×3 (09:09→18:27)
[2021-03-06] MEDS: ATOVAQUONE 750MG/5ML ORAL SYRINGE PO SCH (09:12)
[2021-03-06 12:00] VITALS: BP 120/60
[2021-03-06 16:00] VITALS: BP 109/66
[2021-03-06 20:00] VITALS: BP 106/51
[2021-03-06] MEDS ORDERED: EPOETIN ALFA-EPBX 10,000 UNIT/ML VIAL SUBCUT NR (21:00)
[2021-03-07] VITALS: BP_SYST 96; BP_SYST 99; BP_DIAS 57; BP_DIAS 61
[2021-03-07 04:00] VITALS: BP 99/61
[2021-03-07 07:32] LABS: HEMATOCRIT. 26.7 % (42.0-52.0); HEMOGLOBIN. 8.7 g/dL (14.0-18.0); MEAN CORPUSCULAR HEMOGLOBIN 30.2 pg (28.0-32.0); MEAN CORPUSCULAR VOLUME 92.6 fL (80.0-94.0); MEAN PLATELET VOLUME 9.3 fl (7.4-10.4); PLATELET 228 x1000/uL (130-400); RED BLOOD CELL COUNT 2.89 mill/uL (4.7-6.1); RED CELL DISTRIBUTION WIDTH 12.7 % (11.6-14.6)
[2021-03-07 07:33] LABS: PHOSPHORUS 3.4 mg/dL (2.5-4.9)
[2021-03-07 08:00] VITALS: BP 98/58
[2021-03-07] MEDS: METOPROLOL TARTRATE 50MG TABLET PO SCH ×2 (08:38→21:00)
[2021-03-07] MEDS: MIDODRINE HCL 2.5MG TABLET PO SCH ×3 (08:49→17:30)
[2021-03-07] MEDS: ATOVAQUONE 750MG/5ML ORAL SYRINGE PO SCH (08:50)
[2021-03-07 12:00] VITALS: BP 108/58
[2021-03-07 13:52] LABS: PLATELET ESTIMATE NORMAL
[2021-03-07] MEDS ORDERED: VANCOMYCIN 500 MG PREMIX 100 ML IV NR (15:00)
[2021-03-07 16:00] VITALS: BP 115/71
[2021-03-07 20:00] VITALS: BP 99/57
[2021-03-08] VITALS: BP 109/57
[2021-03-08 08:00] VITALS: BP 98/63
[2021-03-08] MEDS: METOPROLOL TARTRATE 50MG TABLET PO SCH ×2 (08:28→21:00)
[2021-03-08] MEDS: ATOVAQUONE 750MG/5ML ORAL SYRINGE PO SCH (08:29)
[2021-03-08] MEDS: MIDODRINE HCL 2.5MG TABLET PO SCH ×3 (08:29→16:50)
[2021-03-08 09:16] LABS: HEMATOCRIT. 26.2 % (42.0-52.0); HEMOGLOBIN. 8.6 g/dL (14.0-18.0); LYMPHOCYTES % 45.1 % (20.0-50.0); MEAN CORPUSCULAR HEMOGLOBIN 30.6 pg (28.0-32.0); MEAN CORPUSCULAR VOLUME 92.8 fL (80.0-94.0); MEAN PLATELET VOLUME 9.2 fl (7.4-10.4); MONOCYTES % 12.9 % (2.0-8.0); PLATELET 238 x1000/uL (130-400); RED BLOOD CELL COUNT 2.82 mill/uL (4.7-6.1)
[2021-03-08 09:36] LABS: PHOSPHORUS 2.9 mg/dL (2.5-4.9)
[2021-03-08 20:00] VITALS: BP 91/67
[2021-03-09] VITALS: BP 92/56
[2021-03-09 04:00] VITALS: BP 106/57
[2021-03-09 08:00] VITALS: BP 107/59
[2021-03-09 08:56] LABS: BASOPHILS % 1.1 % (0.0-2.0); HEMATOCRIT. 25.4 % (42.0-52.0); HEMOGLOBIN. 8.6 g/dL (14.0-18.0); LYMPHOCYTES % 44.1 % (20.0-50.0); MEAN CORPUSCULAR HEMOGLOBIN 31.6 pg (28.0-32.0); MEAN CORPUSCULAR VOLUME 93.1 fL (80.0-94.0); MEAN PLATELET VOLUME 9.7 fl (7.4-10.4); MONOCYTES % 12.6 % (2.0-8.0); NEUTROPHILS % 42.2 % (40.0-76.0); PLATELET 236 x1000/uL (130-400); RED BLOOD CELL COUNT 2.73 mill/uL (4.7-6.1); RED CELL DISTRIBUTION WIDTH 13.1 % (11.6-14.6)
[2021-03-09 09:07] LABS: PHOSPHORUS 2.2 mg/dL (2.5-4.9)
[2021-03-09] MEDS: MIDODRINE HCL 2.5MG TABLET PO SCH ×3 (09:23→16:47)
[2021-03-09] MEDS: METOPROLOL TARTRATE 50MG TABLET PO SCH ×2 (09:23→09:25)
[2021-03-09] MEDS: ATOVAQUONE 750MG/5ML ORAL SYRINGE PO SCH (09:23)
[2021-03-09 12:00] VITALS: BP 108/62
[2021-03-09] MEDS ORDERED: SODIUM PHOS,M-BASIC-D-BASIC 15 MM in DEXT 5% WATER 245 ML IV SCH (15:00)
[2021-03-09 16:00] VITALS: BP 107/59
[2021-03-09] MEDS ORDERED: VANCOMYCIN 500 MG PREMIX 100 ML IV NR ×2 (18:00→20:00)
[2021-03-09 20:00] VITALS: BP 100/55
[2021-03-10] VITALS: BP 99/56
[2021-03-10 04:00] VITALS: BP 101/60
[2021-03-10 08:00] VITALS: BP 99/65
[2021-03-10] MEDS: MIDODRINE HCL 2.5MG TABLET PO SCH ×3 (08:57→18:06)
[2021-03-10] MEDS: ATOVAQUONE 750MG/5ML ORAL SYRINGE PO SCH (08:57)
[2021-03-10] MEDS: METOPROLOL TARTRATE 50MG TABLET PO SCH ×2 (08:58→20:51)
[2021-03-10 09:16] LABS: EOSINOPHILS % 0.1 % (0.0-5.0); HEMATOCRIT. 26.2 % (42.0-52.0); HEMOGLOBIN. 8.8 g/dL (14.0-18.0); LYMPHOCYTES % 41.4 % (20.0-50.0); MEAN CORPUSCULAR HEMOGLOBIN 31.4 pg (28.0-32.0); MEAN PLATELET VOLUME 9.7 fl (7.4-10.4); MONOCYTES % 11.9 % (2.0-8.0); NEUTROPHILS % 45.6 % (40.0-76.0); PLATELET 246 x1000/uL (130-400); RED BLOOD CELL COUNT 2.78 mill/uL (4.7-6.1); RED CELL DISTRIBUTION WIDTH 13.4 % (11.6-14.6)
[2021-03-10 12:00] VITALS: BP 114/54
[2021-03-10 16:00] VITALS: BP 118/61
[2021-03-10 20:00] VITALS: BP 102/50
[2021-03-11] VITALS: BP 101/58
[2021-03-11 04:00] VITALS: BP 120/58
[2021-03-11 07:15] LABS: BASOPHILS % 0.9 % (0.0-2.0); EOSINOPHILS % 0.1 % (0.0-5.0); HEMATOCRIT. 26.6 % (42.0-52.0); HEMOGLOBIN. 8.6 g/dL (14.0-18.0); LYMPHOCYTES % 45.6 % (20.0-50.0); MEAN CORPUSCULAR HEMOGLOBIN 30.3 pg (28.0-32.0); MEAN CORPUSCULAR VOLUME 93.6 fL (80.0-94.0); MEAN PLATELET VOLUME 9.5 fl (7.4-10.4); MONOCYTES % 11.3 % (2.0-8.0); NEUTROPHILS % 42.1 % (40.0-76.0); PLATELET 262 x1000/uL (130-400); RED BLOOD CELL COUNT 2.84 mill/uL (4.7-6.1); RED CELL DISTRIBUTION WIDTH 13.1 % (11.6-14.6)
[2021-03-11 08:00] VITALS: BP 109/63
[2021-03-11 08:48] LABS: PHOSPHORUS 3.1 mg/dL (2.5-4.9)
[2021-03-11] MEDS: METOPROLOL TARTRATE 50MG TABLET PO SCH ×2 (09:00→20:58)
[2021-03-11] MEDS: MIDODRINE HCL 2.5MG TABLET PO SCH ×3 (09:42→17:00)
[2021-03-11] MEDS: ATOVAQUONE 750MG/5ML ORAL SYRINGE PO SCH (09:43)
[2021-03-11 12:00] VITALS: BP 122/56
[2021-03-11 16:00] VITALS: BP 108/75
[2021-03-11 20:00] VITALS: BP 112/65
[2021-03-11] MEDS ORDERED: VANCOMYCIN 500 MG PREMIX 100 ML IV SCH (21:00)
[2021-03-12] VITALS: BP 111/50
[2021-03-12 04:00] VITALS: BP 112/66
[2021-03-12 08:00] VITALS: BP 112/62
[2021-03-12] MEDS: METOPROLOL TARTRATE 50MG TABLET PO SCH ×2 (09:00→20:11)
[2021-03-12] MEDS: ATOVAQUONE 750MG/5ML ORAL SYRINGE PO SCH (09:55)
[2021-03-12] MEDS: MIDODRINE HCL 2.5MG TABLET PO SCH ×3 (09:55→17:00)
[2021-03-12 12:00] VITALS: BP 112/60
[2021-03-12 16:00] VITALS: BP 135/93
[2021-03-12 20:00] VITALS: BP 124/60
[2021-03-13] VITALS: BP 104/51
[2021-03-13 04:00] VITALS: BP 111/60
[2021-03-13 08:00] VITALS: BP 100/67
[2021-03-13] MEDS: METOPROLOL TARTRATE 50MG TABLET PO SCH ×2 (09:00→21:00)
[2021-03-13] MEDS: ATOVAQUONE 750MG/5ML ORAL SYRINGE PO SCH (09:05)
[2021-03-13] MEDS: MIDODRINE HCL 2.5MG TABLET PO SCH ×3 (09:05→17:35)
[2021-03-13 09:38] LABS: BASOPHILS % 2.6 % (0.0-2.0); EOSINOPHILS % 0.1 % (0.0-5.0); HEMATOCRIT. 27.3 % (42.0-52.0); LYMPHOCYTES % 42.5 % (20.0-50.0); MEAN CORPUSCULAR HEMOGLOBIN 30.6 pg (28.0-32.0); MEAN CORPUSCULAR VOLUME 92.5 fL (80.0-94.0); MEAN PLATELET VOLUME 9.4 fl (7.4-10.4); MONOCYTES % 12.9 % (2.0-8.0); NEUTROPHILS % 41.9 % (40.0-76.0); PLATELET 273 x1000/uL (130-400); RED BLOOD CELL COUNT 2.95 mill/uL (4.7-6.1); RED CELL DISTRIBUTION WIDTH 13.4 % (11.6-14.6)
[2021-03-13 09:55] LABS: PHOSPHORUS 3.4 mg/dL (2.5-4.9)
[2021-03-13 12:00] VITALS: BP 104/64
[2021-03-13 16:00] VITALS: BP 97/60
[2021-03-13 20:00] VITALS: BP 108/61
[2021-03-14] VITALS: BP 95/58
[2021-03-14 08:00] VITALS: BP 95/62
[2021-03-14] MEDS: METOPROLOL TARTRATE 50MG TABLET PO SCH ×2 (09:00→21:00)
[2021-03-14] MEDS: MIDODRINE HCL 2.5MG TABLET PO SCH ×3 (09:00→17:13)
[2021-03-14] MEDS: ATOVAQUONE 750MG/5ML ORAL SYRINGE PO SCH (09:01)
[2021-03-14 12:00] VITALS: BP 112/62
[2021-03-14] MEDS ORDERED: VANCOMYCIN 500 MG PREMIX 100 ML IV NR (14:00)
[2021-03-14 16:00] VITALS: BP 107/70
[2021-03-14 20:00] VITALS: BP 104/71
[2021-03-15] VITALS: BP 107/58
[2021-03-15 04:00] VITALS: BP 103/60
[2021-03-15 08:00] VITALS: BP 103/64
[2021-03-15 08:41] LABS: HEMOGLOBIN. 9.2 g/dL (14.0-18.0); MEAN CORPUSCULAR HEMOGLOBIN 31.3 pg (28.0-32.0); MEAN CORPUSCULAR VOLUME 92.2 fL (80.0-94.0); MEAN PLATELET VOLUME 9.7 fl (7.4-10.4); PLATELET 253 x1000/uL (130-400); RED BLOOD CELL COUNT 2.93 mill/uL (4.7-6.1); RED CELL DISTRIBUTION WIDTH 13.7 % (11.6-14.6)
[2021-03-15] MEDS: METOPROLOL TARTRATE 50MG TABLET PO SCH ×2 (09:00→21:00)
[2021-03-15 09:23] LABS: PHOSPHORUS 3.7 mg/dL (2.5-4.9)
[2021-03-15] MEDS: MIDODRINE HCL 2.5MG TABLET PO SCH ×3 (09:59→17:00)
[2021-03-15] MEDS: ATOVAQUONE 750MG/5ML ORAL SYRINGE PO SCH (09:59)
[2021-03-15 12:00] VITALS: BP 100/62
[2021-03-15 13:04] LABS: PLATELET ESTIMATE NORMAL
[2021-03-15 16:00] VITALS: BP 131/56
[2021-03-15 20:00] VITALS: BP 109/68
[2021-03-16] VITALS: BP 101/60
[2021-03-16 04:00] VITALS: BP 102/61
[2021-03-16 08:00] VITALS: BP 108/68
[2021-03-16] MEDS: ATOVAQUONE 750MG/5ML ORAL SYRINGE PO SCH (10:01)
[2021-03-16] MEDS: METOPROLOL TARTRATE 50MG TABLET PO SCH ×2 (10:01→21:00)
[2021-03-16] MEDS: MIDODRINE HCL 2.5MG TABLET PO SCH ×3 (10:01→17:08)
[2021-03-16 12:00] VITALS: BP 104/62
[2021-03-16] MEDS ORDERED: VANCOMYCIN 750 MG PREMIX 150 ML IV SCH (13:00)
[2021-03-16] MEDS ORDERED: VANCOMYCIN 500 MG PREMIX 100 ML IV SCH (13:00)
[2021-03-16 16:00] VITALS: BP 101/68
[2021-03-16 20:00] VITALS: BP 105/58
[2021-03-17] VITALS: BP 118/64
[2021-03-17 04:00] VITALS: BP 106/57
[2021-03-17 08:00] VITALS: BP 99/56
[2021-03-17] MEDS: METOPROLOL TARTRATE 50MG TABLET PO SCH ×2 (09:00→20:24)
[2021-03-17] MEDS: ATOVAQUONE 750MG/5ML ORAL SYRINGE PO SCH (09:07)
[2021-03-17] MEDS: MIDODRINE HCL 2.5MG TABLET PO SCH ×3 (09:08→17:19)
[2021-03-17 12:00] VITALS: BP 114/84
[2021-03-17 16:00] VITALS: BP 118/46
[2021-03-17 20:00] VITALS: BP_SYST 109; BP_SYST 133; BP_DIAS 70; BP_DIAS 78
[2021-03-18] VITALS (7 sets, daily range): BP systolic 97–144; BP diastolic 48–67
[2021-03-18 06:53] LABS: BASOPHILS % 0.9 % (0.0-2.0); EOSINOPHILS % 0.2 % (0.0-5.0); HEMATOCRIT. 28.7 % (42.0-52.0); HEMOGLOBIN. 9.5 g/dL (14.0-18.0); LYMPHOCYTES % 41.2 % (20.0-50.0); MEAN CORPUSCULAR HEMOGLOBIN 30.4 pg (28.0-32.0); MEAN CORPUSCULAR VOLUME 92.1 fL (80.0-94.0); MONOCYTES % 12.3 % (2.0-8.0); NEUTROPHILS % 45.4 % (40.0-76.0); PLATELET 224 x1000/uL (130-400); RED BLOOD CELL COUNT 3.12 mill/uL (4.7-6.1); RED CELL DISTRIBUTION WIDTH 13.7 % (11.6-14.6)
[2021-03-18 07:28] LABS: PHOSPHORUS 4.3 mg/dL (2.5-4.9)
[2021-03-18] MEDS: METOPROLOL TARTRATE 50MG TABLET PO SCH ×2 (09:00→20:27)
[2021-03-18] MEDS: ATOVAQUONE 750MG/5ML ORAL SYRINGE PO SCH (09:00)
[2021-03-18] MEDS: MIDODRINE HCL 2.5MG TABLET PO SCH ×3 (09:02→17:07)
[2021-03-18] MEDS: VANCOMYCIN 500 MG PREMIX 100 ML IV SCH (12:40)
[2021-03-19] VITALS: BP 106/46
[2021-03-19 04:00] VITALS: BP 91/51
[2021-03-19 08:00] VITALS: BP 107/66
[2021-03-19] MEDS: ATOVAQUONE 750MG/5ML ORAL SYRINGE PO SCH (09:38)
[2021-03-19] MEDS: MIDODRINE HCL 2.5MG TABLET PO SCH ×3 (09:38→16:57)
[2021-03-19 12:00] VITALS: BP 106/83
[2021-03-19 16:00] VITALS: BP 129/64
[2021-03-19 20:00] VITALS: BP 117/69
[2021-03-20] VITALS: BP 110/68
[2021-03-20] MEDS: GUAIFENESIN-DM 200MG-20MG/10ML UDC PO PRN ×2 (00:32→21:39)
[2021-03-20 04:00] VITALS: BP 105/61
[2021-03-20 07:05] LABS: BASOPHILS % 1.3 % (0.0-2.0); HEMATOCRIT. 26.4 % (42.0-52.0); HEMOGLOBIN. 9.5 g/dL (14.0-18.0); LYMPHOCYTES % 43.3 % (20.0-50.0); MEAN CORPUSCULAR HEMOGLOBIN 33.1 pg (28.0-32.0); MEAN CORPUSCULAR VOLUME 92.5 fL (80.0-94.0); MEAN PLATELET VOLUME 10.2 fl (7.4-10.4); NEUTROPHILS % 41.4 % (40.0-76.0); PLATELET 172 x1000/uL (130-400); RED BLOOD CELL COUNT 2.86 mill/uL (4.7-6.1); RED CELL DISTRIBUTION WIDTH 13.6 % (11.6-14.6)
[2021-03-20 07:08] LABS: PHOSPHORUS 3.6 mg/dL (2.5-4.9)
[2021-03-20 08:00] VITALS: BP 105/62
[2021-03-20] MEDS: ATOVAQUONE 750MG/5ML ORAL SYRINGE PO SCH (09:09)
[2021-03-20] MEDS: MIDODRINE HCL 2.5MG TABLET PO SCH ×2 (09:09→21:36)
[2021-03-20 12:00] VITALS: BP 100/60
[2021-03-20] MEDS: VANCOMYCIN 500 MG PREMIX 100 ML IV SCH (13:37)
[2021-03-20 16:00] VITALS: BP 108/58
[2021-03-20 20:00] VITALS: BP 101/50
[2021-03-21] VITALS: BP 96/62
[2021-03-21 04:00] VITALS: BP 95/58
[2021-03-21 08:00] VITALS: BP 95/55
[2021-03-21] MEDS: MIDODRINE HCL 2.5MG TABLET PO SCH ×2 (08:49→21:00)
[2021-03-21 12:00] VITALS: BP 115/53
[2021-03-21] MEDS: ATOVAQUONE 750MG/5ML ORAL SYRINGE PO SCH (13:46)
[2021-03-21 16:00] VITALS: BP 122/55
[2021-03-21 20:00] VITALS: BP 123/74
[2021-03-22] VITALS: BP 107/63
[2021-03-22 04:00] VITALS: BP 112/67
[2021-03-22 07:23] LABS: BASOPHILS % 1.3 % (0.0-2.0); HEMOGLOBIN. 9.5 g/dL (14.0-18.0); LYMPHOCYTES % 42.1 % (20.0-50.0); MEAN CORPUSCULAR VOLUME 91.5 fL (80.0-94.0); MEAN PLATELET VOLUME 10.5 fl (7.4-10.4); NEUTROPHILS % 43.6 % (40.0-76.0); PLATELET 158 x1000/uL (130-400); RED BLOOD CELL COUNT 3.06 mill/uL (4.7-6.1); RED CELL DISTRIBUTION WIDTH 13.8 % (11.6-14.6)
[2021-03-22 07:41] LABS: PHOSPHORUS 3.9 mg/dL (2.5-4.9)
[2021-03-22 08:00] VITALS: BP 116/76
[2021-03-22] MEDS: MIDODRINE HCL 2.5MG TABLET PO SCH (09:42)
[2021-03-22] MEDS: ATOVAQUONE 750MG/5ML ORAL SYRINGE PO SCH (09:42)
[2021-03-22 12:00] VITALS: BP 112/71
[2021-03-22] MEDS: VANCOMYCIN 500 MG PREMIX 100 ML IV SCH (12:21)
[2021-03-22 16:00] VITALS: BP 109/69
[2021-03-22 20:00] VITALS: BP 130/96
[2021-03-22] MEDS ORDERED: EPOETIN ALFA-EPBX 10,000 UNIT/ML VIAL SUBCUT NR (21:00)
[2021-03-23] VITALS: BP 103/71
[2021-03-23 07:19] VITALS: BP 107/64
[2021-03-23 08:00] VITALS: BP 100/58
[2021-03-23] MEDS: ATOVAQUONE 750MG/5ML ORAL SYRINGE PO SCH (08:45)
[2021-03-23] MEDS ORDERED: MIDODRINE HCL 2.5MG TABLET PO SCH (09:00)
[2021-03-23 12:00] VITALS: BP 107/51
[2021-03-23 16:00] VITALS: BP 113/57
[2021-03-23] MEDS: MIDODRINE HCL 2.5MG TABLET PO SCH (17:42)
[2021-03-23 20:00] VITALS: BP 124/63
[2021-03-24] VITALS: BP 95/54
[2021-03-24 04:00] VITALS: BP 110/57
[2021-03-24 07:42] LABS: PHOSPHORUS 4.3 mg/dL (2.5-4.9)
[2021-03-24 07:47] LABS: BASOPHILS % 1.1 % (0.0-2.0); HEMATOCRIT. 28.7 % (42.0-52.0); HEMOGLOBIN. 9.5 g/dL (14.0-18.0); MEAN CORPUSCULAR HEMOGLOBIN 30.4 pg (28.0-32.0); MEAN CORPUSCULAR VOLUME 92.1 fL (80.0-94.0); MEAN PLATELET VOLUME 10.9 fl (7.4-10.4); MONOCYTES % 11.7 % (2.0-8.0); NEUTROPHILS % 47.2 % (40.0-76.0); PLATELET 146 x1000/uL (130-400); RED BLOOD CELL COUNT 3.12 mill/uL (4.7-6.1); RED CELL DISTRIBUTION WIDTH 13.5 % (11.6-14.6)
[2021-03-24 08:00] VITALS: BP 109/52
[2021-03-24] MEDS: ATOVAQUONE 750MG/5ML ORAL SYRINGE PO SCH (09:11)
[2021-03-24] MEDS: MIDODRINE HCL 2.5MG TABLET PO SCH ×2 (09:11→17:43)
[2021-03-24 12:00] VITALS: BP 100/52
[2021-03-24] MEDS: VANCOMYCIN 500 MG PREMIX 100 ML IV SCH (12:19)
[2021-03-24 16:00] VITALS: BP 132/71
[2021-03-24 20:00] VITALS: BP 116/62
[2021-03-25] VITALS: BP 107/67
[2021-03-25 04:00] VITALS: BP 108/63
[2021-03-25 07:33] LABS: BASOPHILS % 1.1 % (0.0-2.0); HEMATOCRIT. 28.5 % (42.0-52.0); HEMOGLOBIN. 9.6 g/dL (14.0-18.0); LYMPHOCYTES % 39.5 % (20.0-50.0); MEAN CORPUSCULAR HEMOGLOBIN 31.2 pg (28.0-32.0); MEAN CORPUSCULAR VOLUME 92.7 fL (80.0-94.0); MEAN PLATELET VOLUME 11.1 fl (7.4-10.4); MONOCYTES % 12.6 % (2.0-8.0); NEUTROPHILS % 46.8 % (40.0-76.0); PLATELET 146 x1000/uL (130-400); RED BLOOD CELL COUNT 3.08 mill/uL (4.7-6.1); RED CELL DISTRIBUTION WIDTH 14.3 % (11.6-14.6)
[2021-03-25 07:57] LABS: CHLORIDE 105 mEq/L (98-107)
[2021-03-25 08:00] VITALS: BP 95/58
[2021-03-25 08:03] LABS: PHOSPHORUS 3.9 mg/dL (2.5-4.9)
[2021-03-25] MEDS: ATOVAQUONE 750MG/5ML ORAL SYRINGE PO SCH (09:41)
[2021-03-25] MEDS: MIDODRINE HCL 2.5MG TABLET PO SCH ×2 (09:42→17:00)
[2021-03-25 16:00] VITALS: BP 128/55
[2021-03-25] MEDS ORDERED: LINE600T14 MT (19:29)
[2021-03-25 20:00] VITALS: BP 114/67
[2021-03-26] VITALS (7 sets, daily range): BP systolic 104–132; BP diastolic 53–61
[2021-03-26] MEDS: MIDODRINE HCL 2.5MG TABLET PO SCH ×2 (09:11→16:11)
[2021-03-26] MEDS: ATOVAQUONE 750MG/5ML ORAL SYRINGE PO SCH (09:12)
[2021-03-26] MEDS: VANCOMYCIN 500 MG PREMIX 100 ML IV SCH (13:04)
[2021-03-27] VITALS: BP 103/62
[2021-03-27 04:00] VITALS: BP 104/56
[2021-03-27 06:39] LABS: HEMATOCRIT. 27.9 % (42.0-52.0); HEMOGLOBIN. 9.5 g/dL (14.0-18.0); LYMPHOCYTES % 39.4 % (20.0-50.0); MEAN CORPUSCULAR HEMOGLOBIN 31.5 pg (28.0-32.0); MEAN CORPUSCULAR VOLUME 92.7 fL (80.0-94.0); MEAN PLATELET VOLUME 10.6 fl (7.4-10.4); MONOCYTES % 12.8 % (2.0-8.0); NEUTROPHILS % 46.8 % (40.0-76.0); PLATELET 158 x1000/uL (130-400); RED BLOOD CELL COUNT 3.01 mill/uL (4.7-6.1)
[2021-03-27 06:47] LABS: CHLORIDE 105 mEq/L (98-107)
[2021-03-27 06:57] LABS: C REACTIVE PROTEIN QUANT 0.7 mg/L (0.0-3.0); PHOSPHORUS 4.8 mg/dL (2.5-4.9)
[2021-03-27 08:00] VITALS: BP 132/62
[2021-03-27] MEDS: ATOVAQUONE 750MG/5ML ORAL SYRINGE PO SCH (10:17)
[2021-03-27] MEDS: MIDODRINE HCL 2.5MG TABLET PO SCH ×2 (10:17→17:12)
[2021-03-27 12:00] VITALS: BP 104/53
[2021-03-27 16:00] VITALS: BP 94/58
== END 2021-03-27 17:45 | disposition home or self-care (01) | DRG 890 ==
LOC: ER 23:02 → 6WST 02-18 03:35 → ENRESERV 02-18 15:19 → 6EST 02-26 05:55
PROVIDERS: ADMIT Internal Medicine; ATTEND Internal Medicine
PROC: 0JPT3XZ Removal of Tunneled Vascular Access Device from Trunk Subcutaneous Tissue and Fascia, Percutaneous Approach (ICD-10-PCS; 2021-02-20)
PROC: 0RJN3ZZ Inspection of Right Wrist Joint, Percutaneous Approach (ICD-10-PCS; 2021-02-25)
PROC: 0R9N3ZZ Drainage of Right Wrist Joint, Percutaneous Approach (ICD-10-PCS; principal; 2021-02-27)
DX: A41.02 Sepsis due to Methicillin resistant Staphylococcus aureus (principal); B20 Human immunodeficiency virus [HIV] disease; N17.9 Acute kidney failure, unspecified; I76 Septic arterial embolism; D69.6 Thrombocytopenia, unspecified; R65.20 Severe sepsis without septic shock; E44.0 Moderate protein-calorie malnutrition; N18.6 End stage renal disease; E87.1 Hypo-osmolality and hyponatremia; E83.39 Other disorders of phosphorus metabolism; E87.8 Other disorders of electrolyte and fluid balance, not elsewhere classified; E87.6 Hypokalemia; D64.9 Anemia, unspecified; M19.90 Unspecified osteoarthritis, unspecified site; Z60.2 Problems related to living alone; M65.841 Other synovitis and tenosynovitis, right hand; M77.41 Metatarsalgia, right foot; M77.42 Metatarsalgia, left foot; Z20.822 Contact with and (suspected) exposure to COVID-19; I69.351 Hemiplegia and hemiparesis following cerebral infarction affecting right dominant side; Z79.899 Other long term (current) drug therapy; Z82.49 Family history of ischemic heart disease and other diseases of the circulatory system; Z91.19 Patient's noncompliance with other medical treatment and regimen; Z68.22 Body mass index [BMI] 22.0-22.9, adult; Z86.19 Personal history of other infectious and parasitic diseases; Z91.14 Patient's other noncompliance with medication regimen; N20.0 Calculus of kidney
CPT/HCPCS: 20610; 20611; 36415; 36589; 36600; 71045; 71250; 73130; 73221; 74176; 76770; 80048; 80053; 80202; 82330; 82375; 82533; 82550; 82805; 82962; 83605; 83735; 84100; 84443; 84484; 85025; 85651; 86140; 86359; 86360; 86850; 86900; 87077; 87186; 87426; 93005; 93306; 97116; 97162; 99291; C1893; J0690; J0692; J0696; J0878; J0885; J2060; J2270; J3370; J3490; J7030; J7040; J7060